=== PATIENT | female | born 1965 | race Asian ===

== ENCOUNTER 2020-04-12 15:54 | Inpatient (IN) | payer OTHER ==
[~2020-04-12] VITALS: Ht 157.5 cm; Wt 58.0 kg
[2020-04-12 16:46] LABS: HEMATOCRIT 16.7 % (37.0-47.0); MEAN CORPUSCULAR VOLUME 114 FL (80-99); PLATELET COUNT 39 K/UL (150-450); RED BLOOD COUNT 1.46 M/UL (4.20-5.40); RED CELL DISTRIBUTION WIDTH 16.9 % (11.6-14.8); WHITE BLOOD COUNT 2.8 K/UL (4.8-10.8)
[2020-04-12 16:50] VITALS: BP 100/53
[2020-04-12 16:50] LABS: HEMOGLOBIN 5.6 G/DL (12.0-16.0)
[2020-04-12] MEDS ORDERED: Pantoprazole Inj IV ONE (17:00)
--- NOTE | 2020-04-12 17:00 | NUR ---
ED Nurse Note: Pt BIBA for AMS. Pt is alert and orientedx3, weakness on general body. Pt responsive to name, Kyrgyz speaking, pt prefers to have son translate at bedside. Pt has yellow color to skin. Pt appears passive. Set up on monitor. Labs drawn and sent.
[2020-04-12 17:05] LABS: AMMONIA 84 umol/L (11-32); ANION GAP 12 mmol/L (5-15); BLOOD UREA NITROGEN 18 mg/dL (7-18); CALCIUM 9.3 MG/DL (8.5-10.1); CARBON DIOXIDE 19 MMOL/L (21-32); CHLORIDE 105 MMOL/L (98-107); CREATININE 1.5 MG/DL (0.55-1.30); POTASSIUM 4.8 MMOL/L (3.5-5.1); SODIUM 136 MMOL/L (136-145)
[2020-04-12 17:15] LABS: ALANINE AMINOTRANSFERASE 23 U/L (12-78); ALBUMIN 2.4 G/DL (3.4-5.0); ALBUMIN/GLOBULIN RATIO 0.8 (1.0-2.7); ALKALINE PHOSPHATASE 95 U/L (46-116); ASPARTATE AMINO TRANSFERASE 56 U/L (15-37); BILIRUBIN,TOTAL 9.4 MG/DL (0.2-1.0)
[2020-04-12 17:18] LABS: BILIRUBIN,DIRECT 3.1 MG/DL (0.0-0.3)
[2020-04-12 17:47] LABS: INR 1.6 (0.9-1.1)
--- NOTE | 2020-04-12 18:16 | Diagnostic Imaging Report ---
Indications: Altered mental status Technique: Spiral acquisitions obtained through the brain. Angled axial and coronal 5 x 5 mm slices were reconstructed. Total dose length product 965 mGycm. CTDI vol(s) 53 mGy. Dose reduction achieved using automated exposure control Comparison: None. Findings: There is age-related enlargement of the ventricles and extra axial CSF spaces. There is normal guzmán-white differentiation. No acute intracranial hemorrhage or edema. No mass effect nor midline shift. Visualized orbits and sinuses are unremarkable. The mastoids are clear. Impression: Age-related volume loss. Negative for acute intracranial bleed or mass effect. The CT scanner at [facility] is accredited by the [employer] and the scans are performed using protocols designed to limit radiation exposure to as low as reasonably achievable to attain images of sufficient resolution adequate for diagnostic evaluation.
--- NOTE | 2020-04-12 18:23 | Emergency Room Report ---
History of Present Illness General Chief Complaint: Altered Level of Consciousness Source: Family Member, Medical Record, EMS Present Illness HPI 54-year-old female presents the ED for evaluation. Brought in by EMS from home. Per EMS patient more altered than baseline x1 day. Son told EMS patient appeared confused. Patient has history of liver cirrhosis. Patient unable provide any additional history at this time. No signs of distress on arrival. No reported alcohol or drug use. No reported falls. No other aggravating relieving factors. No other associated symptoms Allergies: Coded Allergies: No Known Allergies (Unverified , 04/12/20) COVID-19 Screening Contact w/high risk pt: No Experienced COVID-19 symptoms?: No COVID-19 Testing performed DATA QUALITY CONSULTANT: No Patient History Past Medical History: other - cirrhosis Past Surgical History: none Pertinent Family History: none Social History: Denies: smoking, alcohol use, drug use Now: No Immunizations: UTD Reviewed Nursing Documentation: PMH: Agreed; PSxH: Agreed Review of Systems All Other Systems: limited Physical Exam Vital Signs Date Time Temp Pulse Resp B/P (MAP) Pulse Ox O2 Delivery O2 Flow Rate FiO2 04/12/20 15:59 97.9 84 18 102/56 (71) 99 Room Air Sp02 EP Interpretation: reviewed, normal General Appearance: no apparent distress, GCS 15, non-toxic, lethargic Head: normocephalic, atraumatic Eyes: bilateral eye scleral icterus ENT: hearing grossly normal, normal pharynx, no angioedema, normal voice Neck: full range of motion, supple/symm/no masses Respiratory: chest non-tender, lungs clear, normal breath sounds, speaking full sentences Cardiovascular #1: regular rate, rhythm, no edema Cardiovascular #2: 2+ carotid (R), 2+ carotid (L), 2+ radial (R), 2+ radial (L), 2+ dorsalis pedis (R), 2+ dorsalis pedis (L) Gastrointestinal: normal bowel sounds, non tender, soft, non-distended, no guarding, no rebound Rectal: deferred Genitourinary: normal inspection, no CVA tenderness Musculoskeletal: back normal, normal range of motion, gait/station normal, non- tender Neurologic: other - confused Psychiatric: other - confused Reflexes: 3+ bicep (R), 3+ bicep (L), 3+ tricep (R), 3+ tricep (L), 3+ knee (R), 3+ knee (L) Skin: jaundice, other Lymphatic: no adenopathy Procedures Critical Care Time Critical Care Time i. I feel this is a highly complex case requiring extensive working including EKG/Rhythm strip, Xray/CT/US, Blood/urine lab work, repeat exams while in ED, and administration of strong opiates/narcotics for pain control, admission to hospital or close patient follow up. Total time: 60 min bedside evaluation and treatment excludes procedures (EKG). Reason for critical care: hepatic encpahlopathy, anemia Possible complications: hypotension, hypertension, PA, shock, arrhythmias, metabolic acidosis, end organ damage, respiratory failure. Interventions: Labs, IV fluids, CT, discussion with family, blood transfusion, platelet transfusion, Protonix Course: Patient presenting with increased confusion. History of cirrhosis. Ammonia level high. Hemoglobin 5.6, platelets 39. ET head negative. Given IV fluids. Given Protonix IV. Blood transfusion ordered. Platelet ordered. Discussed with son at bedside. Consultations: nursing staff, EMS, family Performed by: Dr Mane Tolerated well condition = serious j. because of unstable vital signs this patient had a condition that could potentially threaten life or limb. I feel this is a critical patient who required my full attention while patient was considered critical. Total Critical Care Time excluding procedures was greater than 60 minutes Medical Decision Making Diagnostic Impression: Primary Impression: Altered level of consciousness Additional Impressions: Hepatic encephalopathy Anemia Qualified Codes: D64.9 - Anemia, unspecified Liver cirrhosis Qualified Codes: K74.60 - Unspecified cirrhosis of liver ER Course Hospital Course 54-year-old female presents with increased lethargy, confusion. History of cirrhosis Differential diagnoses include: sepsis, anemia, hepatic encephalopathy Clinical course Patient placed on stretcher. cafeteria monitor. After initial history and physical I ordered labs, IV fluids, CT He[place] Labs - leukopenia, Hb/Hct 5.6/16.7. Cr 1.5. LFTs/Bili elevated ammonia level elevated, platelets low CT Head no acute process Given IV fluids. Blood transfusion ordered. Platelets ordered. Protonix ordered. Discussed with son at bedside. Case discussed with Dr. Potter and he agreed to accept the patient to his service for further care and support I feel this is a highly complex case requiring extensive working including EKG/Rhythm strip, Xray/CT/US, Blood/urine lab work, repeat exams while in ED, and administration of strong opiates/narcotics for pain control, admission to hospital or close patient follow up. Diagnosis - ALOC, hepatic encephalopathy, anemia, liver cirrhosis Patient admitted to telemetry in serious condition Laboratory Tests Test 04/12/20 16:18 04/12/20 17:20 White Blood Count 2.8 K/UL (4.8-10.8) L Red Blood Count 1.46 M/UL (4.20-5.40) L Hemoglobin 5.6 G/DL (12.0-16.0) *L Hematocrit 16.7 % (37.0-47.0) L Mean Corpuscular Volume 114 FL (80-99) H Mean Corpuscular Hemoglobin 38.2 PG (27.0-31.0) H Mean Corpuscular Hemoglobin Concent 33.4 G/DL (32.0-36.0) Red Cell Distribution Width 16.9 % (11.6-14.8) H Platelet Count 39 K/UL (150-450) L Mean Platelet Volume 10.6 FL (6.5-10.1) H Neutrophils (%) (Auto) % (45.0-75.0) Lymphocytes (%) (Auto) % (20.0-45.0) Monocytes (%) (Auto) % (1.0-10.0) Eosinophils (%) (Auto) % (0.0-3.0) Basophils (%) (Auto) % (0.0-2.0) Differential Total Cells Counted 100 Neutrophils % (Manual) 68 % (45-75) Lymphocytes % (Manual) 22 % (20-45) Monocytes % (Manual) 10 % (1-10) Eosinophils % (Manual) 0 % (0-3) Basophils % (Manual) 0 % (0-2) Band Neutrophils 0 % (0-8) Platelet Estimate Decreased L Platelet Morphology Normal Polychromasia 1+ Anisocytosis 1+ Macrocytosis 2+ Sodium Level 136 MMOL/L (136-145) Potassium Level 4.8 MMOL/L (3.5-5.1) Chloride Level 105 MMOL/L (98-107) Carbon Dioxide Level 19 MMOL/L (21-32) L Anion Gap 12 mmol/L (5-15) Blood Urea Nitrogen 18 mg/dL (7-18) Creatinine 1.5 MG/DL (0.55-1.30) H Estimat Glomerular Filtration Rate 36.4 mL/min (>60) Glucose Level 121 MG/DL (74-106) H Calcium Level 9.3 MG/DL (8.5-10.1) Total Bilirubin 9.4 MG/DL (0.2-1.0) H Direct Bilirubin 3.1 MG/DL (0.0-0.3) H Aspartate Amino Transf (AST/SGOT) 56 U/L (15-37) H Alanine Aminotransferase (ALT/SGPT) 23 U/L (12-78) Alkaline Phosphatase 95 U/L (46-116) Ammonia 84 umol/L (11-32) H Total Protein 5.5 G/DL (6.4-8.2) L Albumin 2.4 G/DL (3.4-5.0) L Globulin 3.1 g/dL Albumin/Globulin Ratio 0.8 (1.0-2.7) L Salicylates Level < 0.2 ug/mL (2.8-20) L Acetaminophen Level < 2 MCG/ML (10-30) L Serum Alcohol < 3 mg/dL Prothrombin Time 17.5 SEC (9.30-11.50) H Prothromb Time International Ratio 1.6 (0.9-1.1) H Activated Partial Thromboplast Time 37 SEC (23-33) H CT/MRI/US Diagnostic Results CT/MRI/US Diagnostic Results : Imaging Test Ordered: CT Head Impression Procedure: CT Head no Contrast Indications: Altered mental status Technique: Spiral acquisitions obtained through the brain. Angled axial and coronal 5 x 5 mm slices were reconstructed. Total dose length product 965 mGycm. CTDI vol(s) 53 mGy. Dose reduction achieved using automated exposure control Comparison: None. Findings: There is age-related enlargement of the ventricles and extra axial CSF spaces. There is normal guzmán-white differentiation. No acute intracranial hemorrhage or edema. No mass effect nor midline shift. Visualized orbits and sinuses are unremarkable. The mastoids are clear. Impression: Age-related volume loss. Negative for acute intracranial bleed or mass effect. The CT scanner at [facility] is accredited by the [employer] and the scans are performed using protocols designed to limit radiation exposure to as low as reasonably achievable to attain images of sufficient resolution adequate for diagnostic evaluation. Last Vital Signs Date Time Temp Pulse Resp B/P (MAP) Pulse Ox O2 Delivery O2 Flow Rate FiO2 04/12/20 15:59 97.9 84 18 102/56 (71) 99 Room Air Status: improved Disposition: ADMITTED INPATIENT Condition: Serious Referrals: NON PHYSICIAN (PCP) Nguyễn Mane MD Apr 12, 2020 18:23
[2020-04-12 19:05] VITALS: BP 108/87
--- NOTE | 2020-04-12 19:10 | NUR ---
ED Nurse Note: Report received from JAELYN EDWARDS. 1st unit of PRBC started.
[2020-04-12] MEDS ORDERED: Lactulose 20gm/30ml UDC ORAL ONE (19:30)
--- NOTE | 2020-04-12 20:20 | NUR ---
ED Nurse Note: Pt's son REED at bedside
[2020-04-12 20:23] LABS: APPEARANCE,URINE CLEAR; BILIRUBIN, URINE NEGATIVE (NEGATIVE); GLUCOSE, URINE (UA) NEGATIVE (NEGATIVE); KETONES,URINE NEGATIVE (NEGATIVE); LEUKOCYTE ESTERASE ,URINE NEGATIVE (NEGATIVE); NITRITE,URINE NEGATIVE (NEGATIVE); PH,URINE 6 (4.5-8.0); PROTEIN,URINE NEGATIVE (NEGATIVE); UROBILINOGEN,URINE 1 MG/DL (0.0-1.0)
[2020-04-12 20:24] LABS: COLOR,URINE YELLOW
--- NOTE | 2020-04-12 20:25 | NUR ---
ED Nurse Note: Patient is AAOX4 as of the moment. Able to answer questions and converse properly
--- NOTE | 2020-04-12 20:43 | NUR ---
ED Nurse Note: Report given to KASH RN
--- NOTE | 2020-04-12 21:15 | NUR ---
TRANSFER TO FLOOR: Patient transferred to TELE at rm 206-2 via gurney, with potline monitor, accompanied by RN and dialysis technician. Belongings given and check by RN. Patient transported safely to bed and endorsed to RN.
[2020-04-12 21:24] VITALS: BP 136/69
--- NOTE | 2020-04-12 21:28 | NUR ---
NURSE NOTES: Received resident from Mike EDWARDS at ER.The resident is alert and oriented x2 and a [place] speaker.She is on room air with Resp even and unlabored.she just completed her first bag transfusion of PRBC well tolerated. The is no evidence of any transfusion reaction noted at this time.The skin is warm and soft and the abdomen is soft and non-distended, no evidence of skin breakdown noted at this time.The patient has a Right hand 18g that is patent and asymptomatic.The bed in low and locked level, bed alarm is on and the siderails is upx2 with call light within easy reach. Will call MD for admission order as indicated
--- NOTE | 2020-04-12 22:44 | NUR ---
NURSE NOTES: Spoke with patient and (Zane) at bedside, they are unable to obtain home medication list at this time. "It's at home and there's no one to pick it up or bring it." RN spoke with son (Gabriele) [phone] over the phone who stated that he is also unable to obtain home medication list at this time but that he will try to obtain it in the morning. (Zane) provided RN with patient's pharmacy - [facility] [phone] - no one answered, unable to leave message. Will ask morning nurse to follow up in the morning.
[2020-04-12] MEDS: Pantoprazole Inj IVP SCH (22:55)
--- NOTE | 2020-04-12 23:04 | NUR ---
NURSE NOTES: 1st Unit of PRBC finished, pt tolerated well.
[2020-04-12] MEDS ORDERED: Acetaminophen 500mg (ES) tab ORAL PRN (23:30)
--- NOTE | 2020-04-12 23:36 | NUR ---
NURSE NOTES: Received admission order from Dr Potter.All orders executed as indicated.The patient remained alert and stable and is receiving her second bag of PRBC with no evidence of a transfusion reaction noted at this time.
[2020-04-13] VITALS: BP 111/63
--- NOTE | 2020-04-13 03:00 | NUR ---
NURSE NOTES: The patient completed her second bag of PRBC and is alert and stable. The is no evidence of a transfusion reaction noted. The patient is also infusing 1 bag of Plateletpheresis and does not seem to be in any distress. will continue to monitor
--- NOTE | 2020-04-13 03:15 | NUR ---
NURSE NOTES: 2nd Unit of PRBC done, pt tolerated well.
[2020-04-13 04:00] VITALS: BP 98/59
--- NOTE | 2020-04-13 04:40 | NUR ---
NURSE NOTES: Pt finished 1 Unit of Platelets with no acute s/s of distress noted. Pt tolerated well
--- NOTE | 2020-04-13 06:37 | Consultation ---
History of Present Illness General Chief Complaint: Altered Level of Consciousness Present Illness Allergies: Coded Allergies: No Known Allergies (Unverified , 04/12/20) Patient History Healthcare decision maker N Resuscitation status Advanced Directive on File Physical Exam Last 24 Hour Vital Signs Date Time Temp Pulse Resp B/P (MAP) Pulse Ox O2 Delivery O2 Flow Rate FiO2 04/13/20 04:00 92 04/13/20 04:00 98.1 78 18 98/59 (72) 100 04/13/20 00:00 80 04/13/20 00:00 98.4 94 18 111/63 (79) 99 04/12/20 21:24 97.7 94 16 136/69 (91) 100 04/12/20 21:21 Room Air 04/12/20 21:15 98.1 89 18 112/92 99 Room Air 98 04/12/20 19:05 98.1 89 18 108/87 99 Room Air 04/12/20 16:50 97.9 82 17 100/53 98 Room Air 04/12/20 16:50 82 17 Room Air 98 04/12/20 15:59 97.9 84 18 102/56 (71) 99 Room Air Intake and Output 04/12/20 04/13/20 19:00 07:00 Intake Total 0 ml Output Total 800 ml Balance 0 ml -800 ml Intake Oral 0 ml Output Urine Total 800 ml Laboratory Tests Test 04/12/20 16:18 04/12/20 17:20 04/12/20 18:54 White Blood Count 2.8 K/UL (4.8-10.8) L Red Blood Count 1.46 M/UL (4.20-5.40) L Hemoglobin 5.6 G/DL (12.0-16.0) *L Hematocrit 16.7 % (37.0-47.0) L Mean Corpuscular Volume 114 FL (80-99) H Mean Corpuscular Hemoglobin 38.2 PG (27.0-31.0) H Mean Corpuscular Hemoglobin Concent 33.4 G/DL (32.0-36.0) Red Cell Distribution Width 16.9 % (11.6-14.8) H Platelet Count 39 K/UL (150-450) L Mean Platelet Volume 10.6 FL (6.5-10.1) H Neutrophils (%) (Auto) % (45.0-75.0) Lymphocytes (%) (Auto) % (20.0-45.0) Monocytes (%) (Auto) % (1.0-10.0) Eosinophils (%) (Auto) % (0.0-3.0) Basophils (%) (Auto) % (0.0-2.0) Differential Total Cells Counted 100 Neutrophils % (Manual) 68 % (45-75) Lymphocytes % (Manual) 22 % (20-45) Monocytes % (Manual) 10 % (1-10) Eosinophils % (Manual) 0 % (0-3) Basophils % (Manual) 0 % (0-2) Band Neutrophils 0 % (0-8) Platelet Estimate Decreased L Platelet Morphology Normal Polychromasia 1+ Anisocytosis 1+ Macrocytosis 2+ Sodium Level 136 MMOL/L (136-145) Potassium Level 4.8 MMOL/L (3.5-5.1) Chloride Level 105 MMOL/L (98-107) Carbon Dioxide Level 19 MMOL/L (21-32) L Anion Gap 12 mmol/L (5-15) Blood Urea Nitrogen 18 mg/dL (7-18) Creatinine 1.5 MG/DL (0.55-1.30) H Estimat Glomerular Filtration Rate 36.4 mL/min (>60) Glucose Level 121 MG/DL (74-106) H Calcium Level 9.3 MG/DL (8.5-10.1) Total Bilirubin 9.4 MG/DL (0.2-1.0) H Direct Bilirubin 3.1 MG/DL (0.0-0.3) H Aspartate Amino Transf (AST/SGOT) 56 U/L (15-37) H Alanine Aminotransferase (ALT/SGPT) 23 U/L (12-78) Alkaline Phosphatase 95 U/L (46-116) Ammonia 84 umol/L (11-32) H Total Protein 5.5 G/DL (6.4-8.2) L Albumin 2.4 G/DL (3.4-5.0) L Globulin 3.1 g/dL Albumin/Globulin Ratio 0.8 (1.0-2.7) L Salicylates Level < 0.2 ug/mL (2.8-20) L Acetaminophen Level < 2 MCG/ML (10-30) L Serum Alcohol < 3 mg/dL Prothrombin Time 17.5 SEC (9.30-11.50) H Prothromb Time International Ratio 1.6 (0.9-1.1) H Activated Partial Thromboplast Time 37 SEC (23-33) H Urine Color Yellow Urine Appearance Clear Urine pH 6 (4.5-8.0) Urine Specific [place] 1.010 (1.005-1.035) Urine Protein Negative (NEGATIVE) Urine Glucose (UA) Negative (NEGATIVE) Urine Ketones Negative (NEGATIVE) Urine Blood Negative (NEGATIVE) Urine Nitrite Negative (NEGATIVE) Urine Bilirubin Negative (NEGATIVE) Urine Urobilinogen 1 MG/DL (0.0-1.0) H Urine Leukocyte Esterase Negative (NEGATIVE) Urine Opiates Screen Negative (NEGATIVE) Urine Barbiturates Screen Negative (NEGATIVE) Phencyclidine (PCP) Screen Negative (NEGATIVE) Urine Amphetamines Screen Negative (NEGATIVE) Urine Benzodiazepines Screen Negative (NEGATIVE) Urine Cocaine Screen Negative (NEGATIVE) Urine Marijuana (THC) Screen Negative (NEGATIVE) Height (Feet): 5 Height (Inches): 2.00 Weight (Pounds): 130 Medications Current Medications Medications (Trade) Dose Ordered Sig/Tommy Route PRN Reason Start Time Stop Time Status Last Admin Dose Admin Acetaminophen (Tylenol) 500 mg Q6H PRN ORAL Mild Pain (Pain Scale 1-3) 04/12/20 23:30 05/12/20 23:29 Pantoprazole (Protonix) 40 mg EVERY 12 HOURS IVP 04/12/20 22:45 05/12/20 22:44 04/12/20 22:55 Assessment/Plan Assessment/Plan: Hematology Consultation REQ MD: Lee Ha RFC: Pancytopenia DOS: 04/13/20 HPI 54-year-old female presents the ED for evaluation. Brought in by EMS from home. Per EMS patient more altered than baseline x1 day. Son told EMS patient appeared confused. Patient has history of liver cirrhosis. Patient unable provide any additional history at this time. No signs of distress on arrival. No reported alcohol or drug use. No reported falls. No other aggravating relieving factors. No other associated symptoms. 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 Coded Allergies: No Known Allergies (Unverified , 04/12/20) COVID-19 Screening Contact w/high risk pt: No Experienced COVID-19 symptoms?: No COVID-19 Testing performed PE MANAGER: No Patient History Past Medical History: other - cirrhosis Past Surgical History: none Pertinent Family History: none Social History: Denies: smoking, alcohol use, drug use Now: No Immunizations: UTD Reviewed Nursing Documentation: PMH: Agreed; PSxH: Agreed Review of Systems All Other Systems: limited Physical Exam Sp02 EP Interpretation: reviewed, normal General Appearance: no apparent distress Heent: hearing grossly normal, normal pharynx, no angioedema, normal voice Neck: full range of motion, supple/symm/no masses Respiratory: chest non-tender, lungs clear, normal breath sounds, speaking full sentences Cardiovascular: regular rate, rhythm, no edema GI: normal bowel sounds, non tender, soft, non-distended, no guarding, no rebound Rectal: deferred Neurologic: confused Psychiatric: other - confused Lymphatic: no adenopathy Labs: reviewed Imaging: noted Assessment and Recs # Pancytopenia is due to underlying liver cirrhosis - first time, she has been here do not have baseline --> smear ordered --> hep and hiv as wel --> us abd --> lactulose/rifax per gi --> wbc 2.8 --> hgb 5.6 --> plt 39k --> transfuse on prn basis --> 2 units prbc 04/13 # Coaguloapthy with hepatic encpahlopathy --> lactulose/rifax per gi --> vitk as needed to reverse if bleeding # Increased confusion due to cirrhosis --> per neuro # History of cirrhosis. --> gi aware # Gerd --> ppi # Joseph --> per renal # Dvt ppx scds Assessment and Recs discussed with Lam Maldonado MD Apr 13, 2020 06:37
--- NOTE | 2020-04-13 07:15 | NUR ---
NURSE HAND-OFF REPORT: Important Events on Shift: 2 Units of PRBC given, 1 Unit of Platelet given. Pt tolerated well Patient Status: Stable Diet: NPO except ice chips and meds Pending Orders: US abd Pending Results/Labs: CBC Pending notification: n/a Latest Vital Signs: Temperature 98.1 , Pulse 92 , B/P 98 /59 , Respiratory Rate 18 , O2 SAT 100 , Room Air, O2 Flow Rate . Vital Sign Comment: WNL EKG Rhythm: Sinus Rhythm Rhythm change?: N MD Notified?: - MD Response: Latest Anderson Fall Score: 35 Fall Risk: Medium Risk Safety Measures: Call light Within Reach, Bed Alarm Zone 2, Side Rails Side Rails x2, Bed position Low and Locked. Fall Precautions: Yes Yellow Socks Yellow Gown Door Sign Patient Fall Education Report given to JERRY Srinivasan.
[2020-04-13 07:18] LABS: HEMATOCRIT 22.1 % (37.0-47.0); MEAN CORPUSCULAR VOLUME 94 FL (80-99); PLATELET COUNT 58 K/UL (150-450); RED BLOOD COUNT 2.34 M/UL (4.20-5.40); RED CELL DISTRIBUTION WIDTH 18.7 % (11.6-14.8); WHITE BLOOD COUNT 3.9 K/UL (4.8-10.8)
[2020-04-13 07:21] LABS: HEMOGLOBIN 8.2 G/DL (12.0-16.0)
--- NOTE | 2020-04-13 07:45 | NUR ---
NURSE NOTES: pt in bed awake watching TV, just used toilet. Pt on cardiac cath lab technologist no signs of cardiac or respiratory respiratory distress. Bed locked and in lowest position, call light within reach. will continue to monitor pt
[2020-04-13 07:49] LABS: % IRON SATURATION 95 % (15-50); IRON 208 ug/dL (50-175); TOTAL IRON BINDING CAPACITY 220 ug/dL (250-450)
[2020-04-13 07:51] LABS: ALBUMIN 2.4 G/DL (3.4-5.0); ALBUMIN/GLOBULIN RATIO 0.7 (1.0-2.7); BILIRUBIN,TOTAL 10.9 MG/DL (0.2-1.0); CALCIUM 9.2 MG/DL (8.5-10.1); CREATININE 1.4 MG/DL (0.55-1.30); POTASSIUM 4.5 MMOL/L (3.5-5.1)
[2020-04-13 07:55] LABS: BILIRUBIN,DIRECT 3.5 MG/DL (0.0-0.3)
[2020-04-13 08:00] VITALS: BP 102/49
[2020-04-13 08:05] LABS: FERRITIN 404 NG/ML (8-388)
--- NOTE | 2020-04-13 08:19 | General Progress Note ---
Subjective Allergies: Coded Allergies: No Known Allergies (Unverified , 04/12/20) Objective Last 24 Hour Vital Signs Date Time Temp Pulse Resp B/P (MAP) Pulse Ox O2 Delivery O2 Flow Rate FiO2 04/13/20 04:00 92 04/13/20 04:00 98.1 78 18 98/59 (72) 100 04/13/20 00:00 80 04/13/20 00:00 98.4 94 18 111/63 (79) 99 04/12/20 21:24 97.7 94 16 136/69 (91) 100 04/12/20 21:21 Room Air 04/12/20 21:15 98.1 89 18 112/92 99 Room Air 98 04/12/20 19:05 98.1 89 18 108/87 99 Room Air 04/12/20 16:50 97.9 82 17 100/53 98 Room Air 04/12/20 16:50 82 17 Room Air 98 04/12/20 15:59 97.9 84 18 102/56 (71) 99 Room Air Intake and Output 04/12/20 04/13/20 19:00 07:00 Intake Total 0 ml Output Total 800 ml Balance 0 ml -800 ml Intake Oral 0 ml Output Urine Total 800 ml Laboratory Tests 04/12/20 16:18: White Blood Count 2.8L, Red Blood Count 1.46L, Hemoglobin 5.6*L, Hematocrit 16.7L, Mean Corpuscular Volume 114H, Mean Corpuscular Hemoglobin 38.2H, Mean Corpuscular Hemoglobin Concent 33.4, Red Cell Distribution Width 16.9H, Platelet Count 39L, Mean Platelet Volume 10.6H, Neutrophils (%) (Auto) , Lymphocytes (%) (Auto) , Monocytes (%) (Auto) , Eosinophils (%) (Auto) , Basophils (%) (Auto) , Differential Total Cells Counted 100, Neutrophils % (Manual) 68, Lymphocytes % (Manual) 22, Monocytes % (Manual) 10, Eosinophils % (Manual) 0, Basophils % (Manual) 0, Band Neutrophils 0, Platelet Estimate DecreasedL, Platelet Morphology Normal, Polychromasia 1+, Anisocytosis 1+, Macrocytosis 2+, Sodium Level 136, Potassium Level 4.8, Chloride Level 105, Carbon Dioxide Level 19L, Anion Gap 12, Blood Urea Nitrogen 18, Creatinine 1.5H, Estimat Glomerular Filtration Rate 36.4, Glucose Level 121H, Calcium Level 9.3, Total Bilirubin 9.4H, Direct Bilirubin 3.1H, Aspartate Amino Transf (AST/SGOT) 56H, Alanine Aminotransferase (ALT/SGPT) 23, Alkaline Phosphatase 95, Ammonia 84H, Total Protein 5.5L, Albumin 2.4L, Globulin 3.1, Albumin/Globulin Ratio 0.8L, Salicylates Level < 0.2L, Acetaminophen Level < 2L, Serum Alcohol < 3 04/12/20 17:20: Prothrombin Time 17.5H, Prothromb Time International Ratio 1.6H, Activated Partial Thromboplast Time 37H 04/12/20 18:54: Urine Color Yellow, Urine Appearance Clear, Urine pH 6, Urine Specific [place] 1.010, Urine Protein Negative, Urine Glucose (UA) Negative, Urine Ketones Negative, Urine Blood Negative, Urine Nitrite Negative, Urine Bilirubin Negative, Urine Urobilinogen 1H, Urine Leukocyte Esterase Negative, Urine Opiates Screen Negative, Urine Barbiturates Screen Negative, Phencyclidine (PCP) Screen Negative, Urine Amphetamines Screen Negative, Urine Benzodiazepines Screen Negative, Urine Cocaine Screen Negative, Urine Marijuana (THC) Screen Negative 04/13/20 06:53: White Blood Count 3.9L, Red Blood Count 2.34L, Hemoglobin 8.2#L, Hematocrit 22.1#L, Mean Corpuscular Volume 94#, Mean Corpuscular Hemoglobin 34.8H, Mean Corpuscular Hemoglobin Concent 36.9H, Red Cell Distribution Width 18.7H, Platelet Count 58L, Mean Platelet Volume 6.2L, Neutrophils (%) (Auto) , Lymphocytes (%) (Auto) , Monocytes (%) (Auto) , Eosinophils (%) (Auto) , Basophils (%) (Auto) , Neutrophils % (Manual) [Pending], Lymphocytes % (Manual) [Pending], Platelet Estimate [Pending], Platelet Morphology [Pending], Sodium Level 138, Potassium Level 4.5, Chloride Level 107, Carbon Dioxide Level 19L, Anion Gap 12, Blood Urea Nitrogen 18, Creatinine 1.4H, Estimat Glomerular Filtration Rate 39.5, Glucose Level 97, Calcium Level 9.2, Total Bilirubin 10.9H , Direct Bilirubin 3.5H, Aspartate Amino Transf (AST/SGOT) 40H, Alanine Aminotransferase (ALT/SGPT) 24, Alkaline Phosphatase 76, Total Protein 5.8L, Albumin 2.4L, Globulin 3.4, Albumin/Globulin Ratio 0.7L, Iron Level 208H, Total Iron Binding Capacity 220L, Percent Iron Saturation 95H, Unsaturated Iron Binding 12L, Ferritin 404H, HIV (1&2) Antibody Rapid [Pending] Height (Feet): 5 Height (Inches): 2.00 Weight (Pounds): 130 Assessment/Plan Assessment/Plan: GI CONSULT Assessment - EtOH +/- viral hepatitis cirrhosis - last EtOH 2 mo ago - severe anemia, w/o current melena - coagulopathy - severe anemia - mild azotemia Recommendations NPO IVF PPI serial CBC lactulose check hepatitis panel check AFP imaging EGD Thank you Hans Eason MD Apr 13, 2020 08:19
[2020-04-13] MEDS ORDERED: Phytonadione 10 mg/mL 1ml amp SUBQ ONE (08:30)
[2020-04-13] MEDS: Pantoprazole Inj IVP SCH ×2 (09:06→21:28)
[2020-04-13] MEDS: Lactulose 20gm/30ml UDC ORAL SCH ×3 (09:06→18:19)
[2020-04-13] MEDS: Thiamine 100mg tab ORAL SCH (09:06)
[2020-04-13 12:00] VITALS: BP 104/53
--- NOTE | 2020-04-13 13:00 | Consultation ---
DATE OF CONSULTATION: 04/13/2020 INFECTIOUS DISEASES CONSULTATION CONSULTING PHYSICIAN: Julio Cesar Clifton MD PRIMARY ATTENDING PHYSICIAN: Lee Potter MD REASON FOR CONSULTATION: Pancytopenia. HISTORY OF PRESENT ILLNESS: The patient is a 54-year-old female admitted yesterday because of altered mental status. 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 The patient's condition became worse recently, became more yellowish. PAST MEDICAL HISTORY: Cirrhosis. ALLERGIES: No known drug allergies. MEDICATIONS: Multivitamin, lactulose, thiamine, Protonix. SOCIAL HISTORY: Denies alcohol, drug abuse, smoking. . Have 1 son. FAMILY HISTORY: Mother had lung cancer. REVIEW OF SYSTEMS: No fever. No chills. Has nausea, vomiting. No abdominal pain. No diarrhea. No dysuria. PHYSICAL EXAMINATION: VITAL SIGNS: Temperature 99.1, pulse 89, blood pressure 94/49. GENERAL APPEARANCE: Seems to have normal weight, in no distress. HEAD AND NECK: Icteric sclerae. HEART: Normal rate. LUNGS: Clear. ABDOMEN: Soft. Mildly distended. EXTREMITIES: No edema. NEUROLOGIC: Awake, alert, responsive. LABORATORY AND DIAGNOSTIC DATA: WBC 3.9, hemoglobin 8.2, hemoglobin at the time of admission was 5.6, the patient had two units of blood, hematocrit 22.1, platelets 58. Total bilirubin 10.9, direct bilirubin 3.5, AST 40, albumin 2.4. Sodium 138, potassium 4.5, chloride 107, bicarb 19, BUN 18, creatinine 1.4. UA was negative except urobilinogen. HIV test negative. Hepatitis profile is pending. CT scan of the head was normal except for age related volume loss. IMPRESSION: 1. Pancytopenia. 2. Cirrhosis of the liver likely GI bleeding. 3. Severe anemia. 4. Altered mental status. 5. Metabolic encephalopathy. RECOMMENDATION: Because the patient is in high risk of getting infection, start ceftriaxone until workup will be done. We will follow up the hepatitis serologies. At the end of my exam, I thank Dr. Potter, for involving me in the care of this patient. Julio Cesar Clifton M.D. DR: Rashida JOB#: [id number] CC:
[2020-04-13] MEDS: cefTRIAXone 1 GM in D5W 55 ML IVPB SCH (13:17)
--- NOTE | 2020-04-13 13:33 | Diagnostic Imaging Report ---
Indication: Abdominal pain Technique: Campos-scale and duplex images of the upper abdomen were obtained Comparison: none Findings: There are bilateral pleural effusions. There is trace ascites. Gallbladder demonstrates gallstones and tumefactive sludge. The gallbladder wall is thickened, measures up to 5 mm thick. Sonographic Reyes's sign is negative. Common bile duct measures 6 mm in diameter. No intrahepatic biliary ductal dilatation. The liver demonstrates normal echogenicity. However, it demonstrates surface nodularity. Portal vein and hepatic veins are patent, but flow reversal in the main, right, and left portal veins is noted. Intrahepatic collateral vessels are noted.. Pancreas is unremarkable. The spleen is enlarged. It measures up to 15 cm long axis dimension. Left kidney measures 9.6 cm in length. Right kidney measures 9.3 cm length. Both kidneys demonstrate normal echogenicity. There is no hydronephrosis. No focal abnormality . Non-aneurysmal abdominal aorta . Impression: Evidence of hepatic cirrhosis, with hepatic surface nodularity Evidence of portal hypertension, with reversed flow within the portal venous system, intrahepatic collateral vessels, splenomegaly, and trace ascites Cholelithiasis. Gallbladder wall thickening is likely on the basis of the hemodynamic derangements resulting from the hepatocellular disease, but could also indicate acute cholecystitis. If there is high clinical suspicion, consider hepatobiliary nuclear scan Negative for dilated bile ducts Small bilateral pleural effusions
--- NOTE | 2020-04-13 13:45 | Consultation ---
DATE OF CONSULTATION: 04/13/2020 GASTROENTEROLOGY CONSULTATION CHIEF COMPLAINT: I was asked to see this patient for evaluation of anemia and cirrhosis. HISTORY OF PRESENT ILLNESS: The patient is a 54-year-old Yoruba woman who is here for the first time in this hospital. She came in due to syncopal episode and severe anemia. The patient speaks Yoruba and was interviewed with Yoruba-speaking nurse. She says that she has been drinking a bottle of Yoruba vodka a day for the past 10 years and about 5 years ago, in 2014, she was told she had abnormal liver tests. Her last alcohol use was about two months ago. She is unaware of any hepatitis B or C history. She has had an endoscopy once in 2014 and again, second time in December of this year. She said there was some inflammation in the stomach, but no further details were available. She denies any melena or hematochezia. In fact, she has been constipated before she came to the hospital. She has never had a colonoscopy. She cannot remember medications and her laboratory parameters show severe anemia, thrombocytopenia, and some coagulopathy, all of which were consistent with cirrhosis. In addition, she has a higher level of bilirubin. PAST MEDICAL HISTORY: History of cirrhosis. FAMILY HISTORY: Noncontributory. SOCIAL HISTORY: The patient drinks a bottle of Yoruba hard liquor daily for the last 10 years, although she states she has not had any for two months. REVIEW OF SYSTEMS: Otherwise negative. PHYSICAL EXAMINATION: GENERAL: Jaundiced woman seen in her room. HEENT: Normocephalic and atraumatic. Sclerae icteric. NECK: Supple. CHEST: Clear to auscultation. CARDIOVASCULAR: Revealed regular rate. ABDOMEN: Soft with good bowel sounds. There was no obvious tenderness. EXTREMITIES: Reveal trace edema. LABORATORY DATA: Noted. ASSESSMENT: This patient presents with cirrhosis manifesting of acute jaundice with coagulopathy, with lower platelets and elevated INR. The etiology for her cirrhosis is at least partially due to alcohol use, although chronic hepatitis B and C will have to be ruled out. She does have severe anemia, but she responded to initial blood transfusion. There appears to be no active bleeding and the patient has not had a bowel movement since she has been here and she is also constipated. Her anemia is very therefore be more of a chronic multifactorial process. An endoscopy could be done to rule out esophageal varices and to consider treatment. Imaging studies have been ordered starting with ultrasound to look at the liver for any mass lesions and alpha-fetoprotein has been ordered as well. I would check hepatitis B and C serologies for comorbid diseases. The patient has a guarded prognosis given the severity of liver disease. If she does not recover from her acute jaundice and liver failure, then she may need to be evaluated in the liver transplant center. RECOMMENDATIONS: 1. Lactulose twice a day given the elevated ammonia. 2. Proton pump inhibitor. 3. Imaging studies. 4. Hepatitis serologies. 5. Endoscopy this week. 6. Serial CBC. 7. Multivitamins and thiamin. Thank you for asking me to participate in care of this patient. Hans Guthrie M.D. DR: Gwen JOB#: [id number] CC:
--- NOTE | 2020-04-13 15:41 | NUR ---
CASE MANAGEMENT:REVIEW 54 YR OLD FEMALE BIBA FROM HOME CC: AMS SI: ANEMIA. HEPATIC ENCEPHALOPATHY LIVER CIRRHOSIS 97.8 84 18 100/53 99% ON RA WBC-2.8 RBC-1.46 H/H-5.6/16.7 CR+1.5 IS: 1L NS BOLUS IV PROTONIX LACTULOSE PO TYPE & CROSS TRANSFUSE PRBC'S PLATELETPHERESIS CT HEAD : TO TELEMETRY
[2020-04-13 16:00] VITALS: BP 100/48
--- NOTE | 2020-04-13 16:45 | NUR ---
NURSE NOTES: pt family stated pt quite drinking 2-3 months ago.
--- NOTE | 2020-04-13 19:16 | NUR ---
NURSE HAND-OFF REPORT: Important Events on Shift:pt, stool was collected no noticeable traces of blood Patient Status: full code Diet: NPO Pending Orders: morning labs Pending Results/Labs: Pending MD notification: Latest Vital Signs: Temperature 98.1 , Pulse 93 , B/P 100 /48 , Respiratory Rate 20 , O2 SAT 97 , Room Air, O2 Flow Rate . Vital Sign Comment: EKG Rhythm: Sinus Rhythm Rhythm change?: N MD Notified?: - MD Response: Latest Anderson Fall Score: 35 Fall Risk: Medium Risk Safety Measures: Call light Within Reach, Bed Alarm Zone 2, Side Rails Side Rails x2, Bed position Low and Locked. Fall Precautions: Y Yellow Socks y Yellow Gown y Patient Fall Education y Report given to Nova/RN.
--- NOTE | 2020-04-13 19:30 | NUR ---
NURSE NOTES: Received pt and report from JERRY Srinivasan. Observed pt resting in bed with both eyes open and family member at bedside. site monitor is in placed; pt is NSR. IV site intact, intact, asymptomatic, and patent. Bed is in the lowest position and locked. Call light and bedside table is within reach. No signs/symptoms of acute distress noted. Will continue plan of care.
[2020-04-13 20:14] VITALS: BP 104/49
--- NOTE | 2020-04-13 22:00 | History and Physical Report ---
DATE OF ADMISSION: 04/12/2020 HISTORY OF PRESENT ILLNESS: Patient admitted for GI bleed, hepatic encephalopathy. Patient is Kazakh speaking, brought in for altered mental status, hepatic encephalopathy. Has history of liver cirrhosis. Admitted for GI bleed. Cannot get any history from her. Patient speaks Kazakh only and is confused. PAST MEDICAL HISTORY: Significant for cirrhosis of the liver, anemia. Patient also has history of anemia. Patient also has history of GERD. PAST SURGICAL HISTORY: None. ALLERGIES: No known allergies. MEDICATIONS: None. FAMILY HISTORY: Noncontributory. SOCIAL HISTORY: Patient history of smoking. Unable to get history of alcohol at this point. We will need to confirm with the family member. No known drug abuse. REVIEW OF SYSTEMS: HEENT: Denies headaches. RESPIRATORY: Denies shortness of breath. Denies cough. CARDIOVASCULAR: Denies chest pain. Denies nausea, vomiting, or diarrhea. EXTREMITIES: Denies pain. CENTRAL NERVOUS SYSTEM: Denies change in speech pattern however patient is a very poor historian, mostly Kazakh speaking and is very confused despite a Kazakh instant potato processor. PHYSICAL EXAMINATION: VITAL SIGNS: Temperature 98.1, pulse is 78, blood pressure 98/59. HEENT: Patient is jaundiced. PERRLA. CHEST: Clear to auscultation. CARDIOVASCULAR: Regular rate and rhythm. No murmurs or extra sounds. GASTROINTESTINAL: Distended. Positive bowel sounds. Abdomen is soft. No organomegaly. Patient does not have positive fluid wave. Does not have symptoms of ascites. EXTREMITIES: No edema. NEUROLOGIC: Has generalized weakness. Oriented to name only. She is jaundiced. LABORATORY DATA: WBC of 2.8, hemoglobin of 5.3, platelets of 39. Sodium 137, potassium 4.8, BUN of 18, creatinine 1.5. Total bilirubin 9.4, AST of 56, ALT of 23, alkaline phosphatase of 95. ASSESSMENT AND PLAN: Pancytopenia, cirrhosis, jaundice, hepatic encephalopathy, anemia, elevated LFTs, rule out alcohol abuse. I have consulted Dr. Herndon, Dr. Lam Reese, Dr. Guthrie, and Dr. Julio Cesar Clifton to help with the management of the above-mentioned abnormalities and symptoms. Patient has pancytopenia and Dr. Reese has also been consulted for transfusion. We need to rule out why patient has GI bleed and endoscopy by Dr. Guthrie. Lee Potter M.D. DR: TONY JOB#: [id number] CC:
[2020-04-14] VITALS: BP 106/43
--- NOTE | 2020-04-14 01:54 | NUR ---
NURSE NOTES: Observed pt asleep in bed with both eyes closed. No signs/symptoms of acute distress noted. Will continue plan of care.
[2020-04-14 04:00] VITALS: BP 102/52
[2020-04-14 06:41] LABS: HEMATOCRIT 21.3 % (37.0-47.0); HEMOGLOBIN 7.7 G/DL (12.0-16.0); MEAN CORPUSCULAR VOLUME 95 FL (80-99); PLATELET COUNT 45 K/UL (150-450); RED BLOOD COUNT 2.24 M/UL (4.20-5.40); RED CELL DISTRIBUTION WIDTH 19.8 % (11.6-14.8); WHITE BLOOD COUNT 3.4 K/UL (4.8-10.8)
[2020-04-14 06:51] LABS: INR 1.7 (0.9-1.1)
[2020-04-14 07:01] LABS: CALCIUM 9.2 MG/DL (8.5-10.1); CREATININE 1.4 MG/DL (0.55-1.30); POTASSIUM 4.5 MMOL/L (3.5-5.1)
--- NOTE | 2020-04-14 07:21 | NUR ---
NURSE HAND-OFF REPORT: Important Events on Shift: No significant events during tube sorter. Patient Status: Stable Diet: NPO Pending Orders: EGD? Pending Results/Labs: AM Labs Pending MD notification: N Latest Vital Signs: Temperature 97.7 , Pulse 78 , B/P 102 /52 , Respiratory Rate 17 , O2 SAT 98 , Room Air, O2 Flow Rate . EKG Rhythm: Sinus Rhythm Rhythm change?: N Latest Anderson Fall Score: 35 Fall Risk: Medium Risk Safety Measures: Call light Within Reach, Bed Alarm Zone 2, Side Rails Side Rails x2, Bed position Low and Locked. Fall Precautions: Yellow Socks Yellow Gown Patient Fall Education Report given to JERRY Sweet.
--- NOTE | 2020-04-14 07:25 | NUR ---
NURSE NOTES: Received report from Nova/RN. Observed patient awake, lying semi-cortez's, resting comfortably. On room air, no acute distress/SOB noted, breathing evenly and unlabored. AAO x4, able to make needs known, denies pain at this time. IV site patent and intact, saline locked. Call light within reach, Encouraged to use call light when needed. Will continue plan of care.
[2020-04-14 08:00] VITALS: BP 102/49
[2020-04-14] MEDS ORDERED: Phytonadione 10 mg/mL 1ml amp SUBQ SCH (08:05)
--- NOTE | 2020-04-14 08:16 | NUR ---
CASE MANAGEMENT:REVIEW 04/14/20 SI: ANEMIA. HEPATIC ENCEPHALOPATHY CIRRHOSIS. PANCYTOPENIA. BILATERAL PLEURAL EFFUSIONS 99.7 85 17 106/43 96% ON RA WBC-3.4 RBC-2.24 H/H-7.7/21.3 PLT-45 CR+1.4 CEA+9.5 INR+1.7 IS: VIT K SQ X1 IV ROCEPHIN Q24 MVI PO QD THIAMINE PO QD LACTULOSE PO TID IV PROTONIX Q12 : TELEMETRY STATUS DCP: FROM HOME PLAN: CT ABD EGD NPO
[2020-04-14] MEDS: Lactulose 20gm/30ml UDC ORAL SCH ×3 (08:58→18:05)
[2020-04-14] MEDS: Pantoprazole Inj IVP SCH ×2 (08:58→21:51)
[2020-04-14] MEDS: Thiamine 100mg tab ORAL SCH (08:58)
--- NOTE | 2020-04-14 10:26 | Infectious Diseases Prog Note ---
Assessment/Plan Assessment/Plan IMPRESSION: 1. Pancytopenia. 2. Cirrhosis of the liver likely GI bleeding. 3. Severe anemia. 4. Altered mental status. 5. Metabolic encephalopathy. 6. Portal hypertension 7. Cholelithiasis RECOMMENDATION: Continue ceftriaxone Will f/u CT scan of abdomen & pelvis Subjective ROS Limited/Unobtainable: Yes Constitutional: Reports: no symptoms Gastrointestinal/Abdominal: Reports: no symptoms Allergies: Coded Allergies: No Known Allergies (Unverified , 04/12/20) Objective Last 24 Hour Vital Signs Date Time Temp Pulse Resp B/P (MAP) Pulse Ox O2 Delivery O2 Flow Rate FiO2 04/14/20 08:00 97.5 82 20 102/49 (66) 100 04/14/20 04:00 97.7 78 17 102/52 (69) 98 04/14/20 04:00 78 04/14/20 00:00 85 04/14/20 00:00 99.7 85 17 106/43 (64) 96 04/13/20 21:00 Room Air 04/13/20 20:14 99.7 90 20 104/49 (67) 97 04/13/20 20:00 100 04/13/20 16:00 86 04/13/20 16:00 98.1 93 20 100/48 (65) 97 04/13/20 12:00 99.5 88 18 104/53 (70) 98 04/13/20 12:00 94 Height (Feet): 5 Height (Inches): 2.00 Weight (Pounds): 130 General Appearance: no acute distress HEENT: mucous membranes moist, other - icterus sclera Respiratory/Chest: lungs clear Cardiovascular: normal rate Abdomen: soft, non tender Extremities: no edema Neurologic/Psychiatric: alert, responsive Laboratory Tests Test 04/13/20 19:50 04/14/20 05:43 Stool Occult Blood Pending White Blood Count 3.4 K/UL (4.8-10.8) L Red Blood Count 2.24 M/UL (4.20-5.40) L Hemoglobin 7.7 G/DL (12.0-16.0) L Hematocrit 21.3 % (37.0-47.0) L Mean Corpuscular Volume 95 FL (80-99) Mean Corpuscular Hemoglobin 34.4 PG (27.0-31.0) H Mean Corpuscular Hemoglobin Concent 36.3 G/DL (32.0-36.0) H Red Cell Distribution Width 19.8 % (11.6-14.8) H Platelet Count 45 K/UL (150-450) L Mean Platelet Volume 9.0 FL (6.5-10.1) Neutrophils (%) (Auto) % (45.0-75.0) Lymphocytes (%) (Auto) % (20.0-45.0) Monocytes (%) (Auto) % (1.0-10.0) Eosinophils (%) (Auto) % (0.0-3.0) Basophils (%) (Auto) % (0.0-2.0) Differential Total Cells Counted 100 Neutrophils % (Manual) 64 % (45-75) Lymphocytes % (Manual) 29 % (20-45) Monocytes % (Manual) 6 % (1-10) Eosinophils % (Manual) 1 % (0-3) Basophils % (Manual) 0 % (0-2) Band Neutrophils 0 % (0-8) Platelet Estimate Decreased L Platelet Morphology Normal Anisocytosis 2+ Prothrombin Time 17.7 SEC (9.30-11.50) H Prothromb Time International Ratio 1.7 (0.9-1.1) H Sodium Level 137 MMOL/L (136-145) Potassium Level 4.5 MMOL/L (3.5-5.1) Chloride Level 107 MMOL/L (98-107) Carbon Dioxide Level 19 MMOL/L (21-32) L Anion Gap 11 mmol/L (5-15) Blood Urea Nitrogen 15 mg/dL (7-18) Creatinine 1.4 MG/DL (0.55-1.30) H Estimat Glomerular Filtration Rate 39.5 mL/min (>60) Glucose Level 89 MG/DL (74-106) Calcium Level 9.2 MG/DL (8.5-10.1) Current Medications Medications (Trade) Dose Ordered Sig/Tommy Route PRN Reason Start Time Stop Time Status Last Admin Dose Admin Barium Sulfate (Readi-Cat 2) 450 ml NOW PRN ORAL Radiology Procedure 04/14/20 08:00 04/16/20 07:59 Ceftriaxone Sodium 1 gm/ Dextrose 55 ml @ 110 mls/hr Q24H IVPB 04/13/20 12:00 04/20/20 11:59 04/13/20 13:17 Lactulose (Cephulac) 20 gm THREE TIMES A DAY ORAL 04/13/20 09:00 05/13/20 08:59 04/14/20 08:58 Multivitamins (Multivitamins) 1 tab DAILY ORAL 04/13/20 09:00 05/13/20 08:59 04/14/20 08:58 Pantoprazole (Protonix) 40 mg EVERY 12 HOURS IVP 04/12/20 22:45 05/12/20 22:44 04/14/20 08:58 Thiamine HCl (Vitamin B1) 100 mg DAILY ORAL 04/13/20 09:00 05/13/20 08:59 04/14/20 08:58 Julio Cesar Clifton MD Apr 14, 2020 10:26
--- NOTE | 2020-04-14 11:19 | Hematology/Onc Progress Note ---
Assessment/Plan Assessment/Plan Assessment and Recs # Pancytopenia is due to underlying liver cirrhosis - first time, she has been here do not have baseline, severe portal htn and cirrhosis noted --> smear ordered --> hep and hiv as wel --> us abd reviewed and shows cirrhosis and splenomegaly, portal htn --> lactulose/rifax per gi --> wbc 2.8--3.4 --> hgb 5.6-->7.7 --> plt 39k-->45 --> transfuse on prn basis --> 2 units prbc 04/13 --> vit k as needed # Coaguloapthy with hepatic encpahlopathy --> lactulose/rifax per gi --> vitk as needed to reverse if bleeding # Increased confusion due to cirrhosis --> per neuro # History of cirrhosis. --> gi aware # Gerd --> ppi # Joseph --> per renal # Dvt ppx scds Assessment and Recs discussed with Rn Subjective Constitutional: Denies: no symptoms, chills, fever, malaise, weakness, other HEENT: Denies: no symptoms, eye pain, blurred vision, tearing, double vision, ear pain, ear discharge, nose pain, nose congestion, throat pain, throat swelling, mouth pain, mouth swelling, other Cardiovascular: Denies: no symptoms, chest pain, edema, irregular heart rate, lightheadedness, palpitations, syncope, other Respiratory: Denies: no symptoms, cough, shortness of breath, SOB with excertion, SOB at rest, sputum, wheezing, other Gastrointestinal/Abdominal: Denies: no symptoms, abdomen distended, abdominal pain, black stools, tarry stools, blood in stool, constipated, diarrhea, difficulty swallowing, nausea, poor appetite, poor fluid intake, rectal bleeding, vomiting, other Genitourinary: Denies: no symptoms, burning, discharge, frequency, flank pain, hematuria, incontinence, pain, urgency, other Neurologic/Psychiatric: Denies: no symptoms, anxiety, depressed, emotional problems, headache, numbness, paresthesia, pre-existing deficit, seizure, tingling, tremors, weakness, other Endocrine: Denies: no symptoms, excessive sweating, flushing, intolerance to cold, intolerance to heat, increased hunger, increased thirst, increased urine, unexplained weight gain, unexplained weight loss, other Hematologic/Lymphatic: Denies: no symptoms, anemia, easy bleeding, easy bruising, adenopathy, other Allergies: Coded Allergies: No Known Allergies (Unverified , 04/12/20) Subjective 04/14 labs reviewed, no bleeding, is awake alert, us abd noted, seen by id Objective Objective Current Medications Medications (Trade) Dose Ordered Sig/Tommy Route PRN Reason Start Time Stop Time Status Last Admin Dose Admin Barium Sulfate (Readi-Cat 2) 450 ml NOW PRN ORAL Radiology Procedure 04/14/20 08:00 04/16/20 07:59 Ceftriaxone Sodium 1 gm/ Dextrose 55 ml @ 110 mls/hr Q24H IVPB 04/13/20 12:00 04/20/20 11:59 04/13/20 13:17 Lactulose (Cephulac) 20 gm THREE TIMES A DAY ORAL 04/13/20 09:00 05/13/20 08:59 04/14/20 08:58 Multivitamins (Multivitamins) 1 tab DAILY ORAL 04/13/20 09:00 05/13/20 08:59 04/14/20 08:58 Pantoprazole (Protonix) 40 mg EVERY 12 HOURS IVP 04/12/20 22:45 05/12/20 22:44 04/14/20 08:58 Thiamine HCl (Vitamin B1) 100 mg DAILY ORAL 04/13/20 09:00 05/13/20 08:59 04/14/20 08:58 Last 24 Hour Vital Signs Date Time Temp Pulse Resp B/P (MAP) Pulse Ox O2 Delivery O2 Flow Rate FiO2 04/14/20 09:00 Room Air 04/14/20 08:00 97.5 82 20 102/49 (66) 100 04/14/20 08:00 78 04/14/20 04:00 97.7 78 17 102/52 (69) 98 04/14/20 04:00 78 04/14/20 00:00 85 04/14/20 00:00 99.7 85 17 106/43 (64) 96 04/13/20 21:00 Room Air 04/13/20 20:14 99.7 90 20 104/49 (67) 97 04/13/20 20:00 100 04/13/20 16:00 86 04/13/20 16:00 98.1 93 20 100/48 (65) 97 04/13/20 12:00 99.5 88 18 104/53 (70) 98 04/13/20 12:00 94 04/13/20 09:00 Room Air 04/13/20 08:00 99.1 89 18 102/49 (66) 97 04/13/20 08:00 91 04/13/20 04:00 92 04/13/20 04:00 98.1 78 18 98/59 (72) 100 04/13/20 00:00 80 04/13/20 00:00 98.4 94 18 111/63 (79) 99 04/12/20 21:24 97.7 94 16 136/69 (91) 100 04/12/20 21:21 Room Air 04/12/20 21:15 98.1 89 18 112/92 99 Room Air 98 04/12/20 19:05 98.1 89 18 108/87 99 Room Air 04/12/20 16:50 97.9 82 17 100/53 98 Room Air 04/12/20 16:50 82 17 Room Air 98 04/12/20 15:59 97.9 84 18 102/56 (71) 99 Room Air Intake and Output 04/13/20 04/14/20 19:00 07:00 # Voids 2 2 Labs Test 04/12/20 16:18 04/12/20 17:20 04/12/20 18:54 04/13/20 06:53 White Blood Count 2.8 K/UL (4.8-10.8) 3.9 K/UL (4.8-10.8) Red Blood Count 1.46 M/UL (4.20-5.40) 2.34 M/UL (4.20-5.40) Hemoglobin 5.6 G/DL (12.0-16.0) 8.2 G/DL (12.0-16.0) Hematocrit 16.7 % (37.0-47.0) 22.1 % (37.0-47.0) Mean Corpuscular Volume 114 FL (80-99) 94 FL (80-99) Mean Corpuscular Hemoglobin 38.2 PG (27.0-31.0) 34.8 PG (27.0-31.0) Mean Corpuscular Hemoglobin Concent 33.4 G/DL (32.0-36.0) 36.9 G/DL (32.0-36.0) Red Cell Distribution Width 16.9 % (11.6-14.8) 18.7 % (11.6-14.8) Platelet Count 39 K/UL (150-450) 58 K/UL (150-450) Mean Platelet Volume 10.6 FL (6.5-10.1) 6.2 FL (6.5-10.1) Neutrophils (%) (Auto) % (45.0-75.0) % (45.0-75.0) Lymphocytes (%) (Auto) % (20.0-45.0) % (20.0-45.0) Monocytes (%) (Auto) % (1.0-10.0) % (1.0-10.0) Eosinophils (%) (Auto) % (0.0-3.0) % (0.0-3.0) Basophils (%) (Auto) % (0.0-2.0) % (0.0-2.0) Differential Total Cells Counted 100 100 Neutrophils % (Manual) 68 % (45-75) 74 % (45-75) Lymphocytes % (Manual) 22 % (20-45) 15 % (20-45) Monocytes % (Manual) 10 % (1-10) 10 % (1-10) Eosinophils % (Manual) 0 % (0-3) 1 % (0-3) Basophils % (Manual) 0 % (0-2) 0 % (0-2) Band Neutrophils 0 % (0-8) 0 % (0-8) Platelet Estimate Decreased Decreased Platelet Morphology Normal Normal Polychromasia 1+ Anisocytosis 1+ 2+ Macrocytosis 2+ Sodium Level 136 MMOL/L (136-145) 138 MMOL/L (136-145) Potassium Level 4.8 MMOL/L (3.5-5.1) 4.5 MMOL/L (3.5-5.1) Chloride Level 105 MMOL/L (98-107) 107 MMOL/L (98-107) Carbon Dioxide Level 19 MMOL/L (21-32) 19 MMOL/L (21-32) Anion Gap 12 mmol/L (5-15) 12 mmol/L (5-15) Blood Urea Nitrogen 18 mg/dL (7-18) 18 mg/dL (7-18) Creatinine 1.5 MG/DL (0.55-1.30) 1.4 MG/DL (0.55-1.30) Estimat Glomerular Filtration Rate 36.4 mL/min (>60) 39.5 mL/min (>60) Glucose Level 121 MG/DL (74-106) 97 MG/DL (74-106) Calcium Level 9.3 MG/DL (8.5-10.1) 9.2 MG/DL (8.5-10.1) Total Bilirubin 9.4 MG/DL (0.2-1.0) 10.9 MG/DL (0.2-1.0) Direct Bilirubin 3.1 MG/DL (0.0-0.3) 3.5 MG/DL (0.0-0.3) Aspartate Amino Transf (AST/SGOT) 56 U/L (15-37) 40 U/L (15-37) Alanine Aminotransferase (ALT/SGPT) 23 U/L (12-78) 24 U/L (12-78) Alkaline Phosphatase 95 U/L (46-116) 76 U/L (46-116) Ammonia 84 umol/L (11-32) Total Protein 5.5 G/DL (6.4-8.2) 5.8 G/DL (6.4-8.2) Albumin 2.4 G/DL (3.4-5.0) 2.4 G/DL (3.4-5.0) Globulin 3.1 g/dL 3.4 g/dL Albumin/Globulin Ratio 0.8 (1.0-2.7) 0.7 (1.0-2.7) Salicylates Level < 0.2 ug/mL (2.8-20) Acetaminophen Level < 2 MCG/ML (10-30) Serum Alcohol < 3 mg/dL Prothrombin Time 17.5 SEC (9.30-11.50) Prothromb Time International Ratio 1.6 (0.9-1.1) Activated Partial Thromboplast Time 37 SEC (23-33) Urine Color Yellow Urine Appearance Clear Urine pH 6 (4.5-8.0) Urine Specific [place] 1.010 (1.005-1.035) Urine Protein Negative (NEGATIVE) Urine Glucose (UA) Negative (NEGATIVE) Urine Ketones Negative (NEGATIVE) Urine Blood Negative (NEGATIVE) Urine Nitrite Negative (NEGATIVE) Urine Bilirubin Negative (NEGATIVE) Urine Urobilinogen 1 MG/DL (0.0-1.0) Urine Leukocyte Esterase Negative (NEGATIVE) Urine Opiates Screen Negative (NEGATIVE) Urine Barbiturates Screen Negative (NEGATIVE) Phencyclidine (PCP) Screen Negative (NEGATIVE) Urine Amphetamines Screen Negative (NEGATIVE) Urine Benzodiazepines Screen Negative (NEGATIVE) Urine Cocaine Screen Negative (NEGATIVE) Urine Marijuana (THC) Screen Negative (NEGATIVE) Iron Level 208 ug/dL (50-175) Total Iron Binding Capacity 220 ug/dL (250-450) Percent Iron Saturation 95 % (15-50) Unsaturated Iron Binding 12 ug/dL (112-346) Ferritin 404 NG/ML (8-388) Alpha Fetoprotein 10.2 ng/mL (0.0-8.3) HIV (1&2) Antibody Rapid Negative (NEGATIVE) Test 04/13/20 07:30 04/13/20 19:50 04/14/20 05:43 Carcinoembryonic Antigen 9.5 ng/mL (0.0-4.7) Hepatitis A IgM Antibody Negative (Negative) Hepatitis B Surface Antigen Negative (Negative) Hepatitis B Core IgM Antibody Negative (Negative) Hepatitis C Antibody <0.1 s/co ratio White Blood Count 3.4 K/UL (4.8-10.8) Red Blood Count 2.24 M/UL (4.20-5.40) Hemoglobin 7.7 G/DL (12.0-16.0) Hematocrit 21.3 % (37.0-47.0) Mean Corpuscular Volume 95 FL (80-99) Mean Corpuscular Hemoglobin 34.4 PG (27.0-31.0) Mean Corpuscular Hemoglobin Concent 36.3 G/DL (32.0-36.0) Red Cell Distribution Width 19.8 % (11.6-14.8) Platelet Count 45 K/UL (150-450) Mean Platelet Volume 9.0 FL (6.5-10.1) Neutrophils (%) (Auto) % (45.0-75.0) Lymphocytes (%) (Auto) % (20.0-45.0) Monocytes (%) (Auto) % (1.0-10.0) Eosinophils (%) (Auto) % (0.0-3.0) Basophils (%) (Auto) % (0.0-2.0) Differential Total Cells Counted 100 Neutrophils % (Manual) 64 % (45-75) Lymphocytes % (Manual) 29 % (20-45) Monocytes % (Manual) 6 % (1-10) Eosinophils % (Manual) 1 % (0-3) Basophils % (Manual) 0 % (0-2) Band Neutrophils 0 % (0-8) Platelet Estimate Decreased Platelet Morphology Normal Anisocytosis 2+ Prothrombin Time 17.7 SEC (9.30-11.50) Prothromb Time International Ratio 1.7 (0.9-1.1) Sodium Level 137 MMOL/L (136-145) Potassium Level 4.5 MMOL/L (3.5-5.1) Chloride Level 107 MMOL/L (98-107) Carbon Dioxide Level 19 MMOL/L (21-32) Anion Gap 11 mmol/L (5-15) Blood Urea Nitrogen 15 mg/dL (7-18) Creatinine 1.4 MG/DL (0.55-1.30) Estimat Glomerular Filtration Rate 39.5 mL/min (>60) Glucose Level 89 MG/DL (74-106) Calcium Level 9.2 MG/DL (8.5-10.1) Height (Feet): 5 Height (Inches): 2.00 Weight (Pounds): 130 Objective Sp02 EP Interpretation: reviewed, normal General Appearance: no apparent distress Heent: hearing grossly normal, normal pharynx, no angioedema, normal voice Neck: full range of motion, supple/symm/no masses Respiratory: chest non-tender, lungs clear, normal breath sounds, speaking full sentences Cardiovascular: regular rate, rhythm, no edema GI: normal bowel sounds, non tender, soft, non-distended, no guarding, no rebound Rectal: deferred Neurologic: confused Psychiatric: other - confused Lymphatic: no adenopathy Lam Reese MD Apr 14, 2020 11:18
[2020-04-14 12:00] VITALS: BP 97/50
[2020-04-14] MEDS: cefTRIAXone 1 GM in D5W 55 ML IVPB SCH (12:22)
--- NOTE | 2020-04-14 14:07 | Diagnostic Imaging Report ---
Indication: Indication: Abdominal pain Technique: Spiral acquisitions obtained through the abdomen and pelvis. Patient given oral contrast. No IV contrast utilized, per referring physician request.. Multiplanar reconstructions were generated. Total dose length product 189 mGycm. CTDIvol(s) 3, 2 mGy. Dose reduction achieved using automated exposure control Comparison: No comparison CT scan. Reference made to abdominal sonogram 04/13/2020 Findings: The appendix is normal. There is moderate retained colonic stool diffusely. No evidence of diverticulosis or diverticulitis. Ingested contrast has traversed nearly the entirety of small bowel, reaches the distal ileum. No small bowel wall thickening. There is trace free intraperitoneal fluid. No free or loculated intraperitoneal gas is evident. Distal esophagus, stomach, duodenum are unremarkable. The gallbladder is distended. It contains multiple gallstones. There is mild thickening of the gallbladder wall. No biliary ductal dilatation. Lack of IV contrast limits assessment of the solid organs. The liver demonstrates mild surface nodularity and is somewhat atrophic. No focal abnormality. The spleen is enlarged. The pancreas demonstrates a small calcification in the uncinate process. No retroperitoneal or mesenteric mass or adenopathy. No pelvic mass or adenopathy. Normal uterus and adnexal structures. There are small bilateral pleural effusions. There is a small pericardial effusion. The lung bases demonstrate mild interstitial edema. The bones are unremarkable. There is diffuse mild edema of the subcutaneous fat and of the mesenteric and retroperitoneal fat. Impression: Cholelithiasis. Distended mildly thick-walled gallbladder. Wall thickening is most likely secondary to drainage hemodynamic related to hepatocellular disease, but the possibility of acute cholecystitis should also be considered. Consider hepatobiliary nuclear scan if there is high clinical suspicion No acute process otherwise Evidence of hepatic cirrhosis. Evidence of anasarca, with trace free intraperitoneal fluid, bilateral pleural effusions, small pericardial effusion, diffuse edema of the subcutaneous, abdominal and pelvic fat, mild pulmonary interstitial edema. Splenomegaly The CT scanner at [facility] is accredited by the [employer] and the scans are performed using protocols designed to limit radiation exposure to as low as reasonably achievable to attain images of sufficient resolution adequate for diagnostic evaluation. Technique: Spiral acquisitions obtained through the abdomen and pelvis. No oral contrast utilized, per emergency room physician request No IV contrast utilized, per referring physician request.. Multiplanar reconstructions were generated. Total dose length product 189 mGycm. CTDIvol(s) 3, 2 mGy. Dose reduction achieved using automated exposure control Comparison: Findings: Impression: The CT scanner at [facility] is accredited by the [employer] and the scans are performed using protocols designed to limit radiation exposure to as low as reasonably achievable to attain images of sufficient resolution adequate for diagnostic evaluation.
[2020-04-14 14:41] LABS: HEMATOCRIT 21.9 % (37.0-47.0); HEMOGLOBIN 7.9 G/DL (12.0-16.0); MEAN CORPUSCULAR VOLUME 95 FL (80-99); PLATELET COUNT 49 K/UL (150-450); RED BLOOD COUNT 2.31 M/UL (4.20-5.40); WHITE BLOOD COUNT 3.7 K/UL (4.8-10.8)
--- NOTE | 2020-04-14 14:54 | NUR ---
INSURANCE CLINICALS AND REVIEW FAXED TO [employer] T: [phone] [id number] F:[phone]
--- NOTE | 2020-04-14 15:00 | NUR ---
NURSE NOTES: One unit of blood transfusion order received and carried out.
[2020-04-14 16:00] VITALS: BP 98/49
--- NOTE | 2020-04-14 17:35 | NUR ---
NURSE NOTES: Blood transfusion started, Patient tolerated well. Will continue to monitor.
--- NOTE | 2020-04-14 19:25 | NUR ---
NURSE HAND-OFF REPORT: Important Events on Shift:Receiving Blood transfusion Patient Status: Stable Diet: Clear liquid diet Pending Orders: NA Pending Results/Labs:Morning labs Pending MD notification:NA Latest Vital Signs: Temperature 97.5 , Pulse 90 , B/P 98 /49 , Respiratory Rate 20 , O2 SAT 100 , Room Air, O2 Flow Rate . Vital Sign Comment: Stable EKG Rhythm: Sinus Rhythm Rhythm change?: N MD Notified?: - MD Response: Latest Anderson Fall Score: 35 Fall Risk: Medium Risk Safety Measures: Call light Within Reach, Bed Alarm Zone 2, Side Rails Side Rails x2, Bed position Low and Locked. Fall Precautions: Yellow Socks Yellow Gown Patient Fall Education Report given to Nova/RN.
--- NOTE | 2020-04-14 19:30 | NUR ---
NURSE NOTES: Received pt and report from JERRY Sweet. Observed pt resting in bed with both eyes open and watching television. Pt is A/Ox4. brazer crawler torch is in placed; pt is NSR. IV site intact, intact, asymptomatic, and patent; currently running 1 unit Packed RBCs @ 70cc/hr. No adverse reaction noted. Bed is in the lowest position and locked. Call light and bedside table is within reach. No signs/symptoms of acute distress noted. Will continue plan of care.
[2020-04-14 20:00] VITALS: BP 99/51
--- NOTE | 2020-04-14 20:32 | General Progress Note ---
Subjective ROS Limited/Unobtainable: Yes Allergies: Coded Allergies: No Known Allergies (Unverified , 04/12/20) Objective Last 24 Hour Vital Signs Date Time Temp Pulse Resp B/P (MAP) Pulse Ox O2 Delivery O2 Flow Rate FiO2 04/14/20 16:00 97.5 82 20 98/49 (65) 100 04/14/20 16:00 90 04/14/20 12:00 83 04/14/20 12:00 97.9 83 20 97/50 (66) 100 04/14/20 09:00 Room Air 04/14/20 08:00 97.5 82 20 102/49 (66) 100 04/14/20 08:00 78 04/14/20 04:00 97.7 78 17 102/52 (69) 98 04/14/20 04:00 78 04/14/20 00:00 85 04/14/20 00:00 99.7 85 17 106/43 (64) 96 04/13/20 21:00 Room Air Intake and Output 04/13/20 04/14/20 19:00 07:00 # Voids 2 2 Laboratory Tests 04/14/20 05:43: White Blood Count 3.4L, Red Blood Count 2.24L, Hemoglobin 7.7L, Hematocrit 21.3L , Mean Corpuscular Volume 95, Mean Corpuscular Hemoglobin 34.4H, Mean Corpuscular Hemoglobin Concent 36.3H, Red Cell Distribution Width 19.8H, Platelet Count 45L, Mean Platelet Volume 9.0, Neutrophils (%) (Auto) , Lymphocytes (%) (Auto) , Monocytes (%) (Auto) , Eosinophils (%) (Auto) , Basophils (%) (Auto) , Differential Total Cells Counted 100, Neutrophils % (Manual) 64, Lymphocytes % (Manual) 29, Monocytes % (Manual) 6, Eosinophils % (Manual) 1, Basophils % (Manual) 0, Band Neutrophils 0, Platelet Estimate DecreasedL, Platelet Morphology Normal, Anisocytosis 2+, Prothrombin Time 17.7H, Prothromb Time International Ratio 1.7H, Sodium Level 137, Potassium Level 4.5, Chloride Level 107, Carbon Dioxide Level 19L, Anion Gap 11, Blood Urea Nitrogen 15, Creatinine 1.4H, Estimat Glomerular Filtration Rate 39.5, Glucose Level 89, Calcium Level 9.2 04/14/20 14:20: White Blood Count 3.7L, Red Blood Count 2.31L, Hemoglobin 7.9L, Hematocrit 21.9L , Mean Corpuscular Volume 95, Mean Corpuscular Hemoglobin 34.4H, Mean Corpuscular Hemoglobin Concent 36.3H, Red Cell Distribution Width 19.0H, Platelet Count 49L, Mean Platelet Volume 6.0L, Neutrophils (%) (Auto) , Lymphocytes (%) (Auto) , Monocytes (%) (Auto) , Eosinophils (%) (Auto) , Basophils (%) (Auto) , Differential Total Cells Counted 100, Neutrophils % (Manual) 66, Lymphocytes % (Manual) 26, Monocytes % (Manual) 5, Eosinophils % (Manual) 2, Basophils % (Manual) 0, Band Neutrophils 1, Platelet Estimate DecreasedL, Platelet Morphology Normal, Anisocytosis 2+, Reactive Lymphocytes Occasional, Smudge Cells Occasional, Hypochromasia 2+ Height (Feet): 5 Height (Inches): 2.00 Weight (Pounds): 130 General Appearance: confused Respiratory/Chest: lungs clear, normal breath sounds Assessment/Plan Problem List: (1) Hepatic encephalopathy ICD Codes: K72.90 - Hepatic failure, unspecified without coma SNOMED: 99687405 (2) Liver cirrhosis ICD Codes: K74.60 - Unspecified cirrhosis of liver SNOMED: 73324572 Qualifiers: Qualified Codes: K74.60 - Unspecified cirrhosis of liver (3) Altered level of consciousness ICD Codes: R40.4 - Transient alteration of awareness SNOMED: 7013997 (4) Anemia ICD Codes: D64.9 - Anemia, unspecified SNOMED: 619398218 Qualifiers: Qualified Codes: D64.9 - Anemia, unspecified (5) GI bleed ICD Codes: K92.2 - Gastrointestinal hemorrhage, unspecified SNOMED: 53201388 Status: progressing Assessment/Plan: jaundice hepatic encephalopathy cirrhosis r/o etoh abuse revewed chart an\d labs Lee Potter MD Apr 14, 2020 20:32
--- NOTE | 2020-04-14 21:37 | NUR ---
NURSE NOTES: Completed 1 unit of Packed RBCs at 2130. No adverse reaction noted. Post VS: temp 98.1 F, HR 83 bpm, BP 98/51. Will continue to monitor pt.
--- NOTE | 2020-04-14 21:51 | General Progress Note ---
Subjective Allergies: Coded Allergies: No Known Allergies (Unverified , 04/12/20) Subjective above noted feels OK hungry CT noted --> cirrhosis CEA elevated, AFP mildly elevated OB (-) --> no acute GIB Objective Last 24 Hour Vital Signs Date Time Temp Pulse Resp B/P (MAP) Pulse Ox O2 Delivery O2 Flow Rate FiO2 04/14/20 20:00 99.0 89 19 99/51 (67) 98 04/14/20 20:00 83 04/14/20 16:00 97.5 82 20 98/49 (65) 100 04/14/20 16:00 90 04/14/20 12:00 83 04/14/20 12:00 97.9 83 20 97/50 (66) 100 04/14/20 09:00 Room Air 04/14/20 08:00 97.5 82 20 102/49 (66) 100 04/14/20 08:00 78 04/14/20 04:00 97.7 78 17 102/52 (69) 98 04/14/20 04:00 78 04/14/20 00:00 85 04/14/20 00:00 99.7 85 17 106/43 (64) 96 Intake and Output 04/13/20 04/14/20 19:00 07:00 # Voids 2 2 Laboratory Tests 04/14/20 05:43: White Blood Count 3.4L, Red Blood Count 2.24L, Hemoglobin 7.7L, Hematocrit 21.3L , Mean Corpuscular Volume 95, Mean Corpuscular Hemoglobin 34.4H, Mean Corpuscular Hemoglobin Concent 36.3H, Red Cell Distribution Width 19.8H, Platelet Count 45L, Mean Platelet Volume 9.0, Neutrophils (%) (Auto) , Lymphocytes (%) (Auto) , Monocytes (%) (Auto) , Eosinophils (%) (Auto) , Basophils (%) (Auto) , Differential Total Cells Counted 100, Neutrophils % (Manual) 64, Lymphocytes % (Manual) 29, Monocytes % (Manual) 6, Eosinophils % (Manual) 1, Basophils % (Manual) 0, Band Neutrophils 0, Platelet Estimate DecreasedL, Platelet Morphology Normal, Anisocytosis 2+, Prothrombin Time 17.7H, Prothromb Time International Ratio 1.7H, Sodium Level 137, Potassium Level 4.5, Chloride Level 107, Carbon Dioxide Level 19L, Anion Gap 11, Blood Urea Nitrogen 15, Creatinine 1.4H, Estimat Glomerular Filtration Rate 39.5, Glucose Level 89, Calcium Level 9.2 04/14/20 14:20: White Blood Count 3.7L, Red Blood Count 2.31L, Hemoglobin 7.9L, Hematocrit 21.9L , Mean Corpuscular Volume 95, Mean Corpuscular Hemoglobin 34.4H, Mean Corpuscular Hemoglobin Concent 36.3H, Red Cell Distribution Width 19.0H, Platelet Count 49L, Mean Platelet Volume 6.0L, Neutrophils (%) (Auto) , Lymphocytes (%) (Auto) , Monocytes (%) (Auto) , Eosinophils (%) (Auto) , Basophils (%) (Auto) , Differential Total Cells Counted 100, Neutrophils % (Manual) 66, Lymphocytes % (Manual) 26, Monocytes % (Manual) 5, Eosinophils % (Manual) 2, Basophils % (Manual) 0, Band Neutrophils 1, Platelet Estimate DecreasedL, Platelet Morphology Normal, Anisocytosis 2+, Reactive Lymphocytes Occasional, Smudge Cells Occasional, Hypochromasia 2+ Height (Feet): 5 Height (Inches): 2.00 Weight (Pounds): 130 Objective Jaundiced NCAT supple CTA RR abd soft ND trace edema Assessment/Plan Status: progressing Assessment/Plan: Assessment - EtOH +/- viral hepatitis cirrhosis - last EtOH 2 mo ago - severe anemia, but currently OB (-) - coagulopathy - severe anemia - mild azotemia Recommendations clears IVF PPI serial CBC lactulose check hepatitis panel --> negative A, B, C check AFP - mildly elevated imaging EGD in am - needs preop platelets Hans Guthrie MD Apr 14, 2020 21:51
[2020-04-15] VITALS: BP 103/49
[2020-04-15 04:00] VITALS: BP 98/53
[2020-04-15 07:02] LABS: INR 1.6 (0.9-1.1)
--- NOTE | 2020-04-15 07:07 | NUR ---
NURSE NOTES: Received report from Nova/RN. Observed patient awake, lying semi-cortez's, resting comfortably. On room air, no acute distress/SOB noted, breathing evenly and unlabored. AAO x4, able to make needs known, denies pain at this time. NPO at this time. IV site patent and intact, saline locked. Call light within reach, Encouraged to use call light when needed. Will continue plan of care.
[2020-04-15 07:15] LABS: HEMATOCRIT 24.5 % (37.0-47.0); HEMOGLOBIN 9.1 G/DL (12.0-16.0); MEAN CORPUSCULAR VOLUME 93 FL (80-99); PLATELET COUNT 24 K/UL (150-450); RED BLOOD COUNT 2.64 M/UL (4.20-5.40); RED CELL DISTRIBUTION WIDTH 18.6 % (11.6-14.8); WHITE BLOOD COUNT 3.3 K/UL (4.8-10.8)
--- NOTE | 2020-04-15 07:30 | NUR ---
NURSE NOTES: Blood bank called and said platelet won't be ready for another 2-[address] Guthrie[address]
--- NOTE | 2020-04-15 07:36 | NUR ---
NURSE HAND-OFF REPORT: Important Events on Shift: Completed 1 unit of PRBCs. Rapid COVID swabbed STATE resulted negative. Patient Status: Stable Diet: NPO Pending Orders: EGD, platelet transfusion Pending Results/Labs: AM Labs Pending MD notification: N Latest Vital Signs: Temperature 97.7 , Pulse 75 , B/P 98 /53 , Respiratory Rate 17 , O2 SAT 96 , Room Air, O2 Flow Rate . EKG Rhythm: Sinus Rhythm Rhythm change?: N Latest Anderson Fall Score: 35 Fall Risk: Medium Risk Safety Measures: Call light Within Reach, Bed Alarm Zone 2, Side Rails Side Rails x2, Bed position Low and Locked. Fall Precautions: Yellow Socks Yellow Gown Patient Fall Education Report given to JERRY Sweet.
[2020-04-15 07:42] LABS: ALBUMIN 2.4 G/DL (3.4-5.0); ALBUMIN/GLOBULIN RATIO 0.8 (1.0-2.7); BILIRUBIN,TOTAL 11.5 MG/DL (0.2-1.0); CALCIUM 8.9 MG/DL (8.5-10.1); CREATININE 1.3 MG/DL (0.55-1.30); POTASSIUM 4.1 MMOL/L (3.5-5.1)
[2020-04-15 07:46] LABS: BILIRUBIN,DIRECT 3.5 MG/DL (0.0-0.3)
[2020-04-15 08:00] VITALS: BP 94/50
[2020-04-15] MEDS: Thiamine 100mg tab ORAL SCH (08:11)
[2020-04-15] MEDS: Lactulose 20gm/30ml UDC ORAL SCH (08:11)
[2020-04-15] MEDS: Pantoprazole Inj IVP SCH (08:12)
--- NOTE | 2020-04-15 09:48 | NUR ---
CASE MANAGEMENT:REVIEW 04/15/20 SI: ANEMIA. HEPATIC ENCEPHALOPATHY CIRRHOSIS. PANCYTOPENIA. BILATERAL PLEURAL EFFUSIONS 97.7 70 16 94/50 98% ON RA INR+1.6 WBC-3.3 RBC-2.64 H/H-9.1/24.5 PLT-24 IS: IV ROCEPHIN Q24 MVI PO QD THIAMINE PO QD LACTULOSE PO TID IV PROTONIX Q12 : TELEMETRY STATUS DCP: FROM HOME PLAN: EGD SCHEDULED FOR TODAY NPO
--- NOTE | 2020-04-15 11:40 | NUR ---
NURSE NOTES: Patient supposed to have EGD today (04/15/20) at 1000 am after receiving Platelet at 0800 am. Doctor Cleveland put Platelet order last night 04/14 @ 21:57 to be transfused @ 0800 am. RN (Micki) called Blood bank around 0715 am and left message. Received a call back from Blood bank and asked me if the platelet is going to be transfused for sure because platelet cost $1000. I told them yes patient needs it before EGD. Blood bank told me it wont be ready for another 2-[address] Guthrie to let him know that there is a delay. Dr. Guthrie came to the floor around 10:00am to get the Consent and print out of the order to take it downstairs and get the platelet himself. He brought the platelet and gave me (Micki) to transfuse it. Unfortunately the patient was getting ready to leave AMA. RN told the patient and the transfusion takes only an hour or an hour and half, and she can Do EGD after. Patient stated there is so much delay; I have been here for three days without food, and I cant wait anymore. I have to go home and rest. RN explained the risk of leaving at this time. Patient still refused to stay, Signed out AMA form. ekg monitor and IV removed, Belonging check done and signed by . Patient Left with .
--- NOTE | 2020-04-15 22:09 | General Progress Note ---
Subjective Allergies: Coded Allergies: No Known Allergies (Unverified , 04/12/20) Subjective Patient seen this am no new symptoms d/w GI lab and blood bank re EGD timing platelets checked out of blood bank by to help expedite transfusion shortly before procedure time patient signed out AMA Per RN, patient's RN and could not convince her to stay so pt d/c'd AMA I received a call from patient son later that afternoon wants to bring back pt to a hospital but also wanted patient to be evaluated by liver specialists I advised [place] [facility] [place], He is deciding on taking mother to [facility] Objective Last 24 Hour Vital Signs Date Time Temp Pulse Resp B/P (MAP) Pulse Ox O2 Delivery O2 Flow Rate FiO2 04/15/20 09:00 Room Air 04/15/20 08:00 97.7 70 16 94/50 (65) 98 04/15/20 08:00 70 04/15/20 04:00 97.7 75 17 98/53 (68) 96 04/15/20 04:00 86 04/15/20 00:00 80 04/15/20 00:00 98.1 86 17 103/49 (67) 97 Intake and Output 04/14/20 04/15/20 19:00 07:00 Intake Total 250 ml Balance 250 ml Blood Product 250 ml # Voids 4 2 Laboratory Tests 04/15/20 06:00: White Blood Count 3.3L, Red Blood Count 2.64L, Hemoglobin 9.1L, Hematocrit 24.5L , Mean Corpuscular Volume 93, Mean Corpuscular Hemoglobin 34.6H, Mean Corpuscular Hemoglobin Concent 36.3H, Red Cell Distribution Width 18.6H, Platelet Count 24#L, Mean Platelet Volume 10.1, Neutrophils (%) (Auto) , Lymphocytes (%) (Auto) , Monocytes (%) (Auto) , Eosinophils (%) (Auto) , Basophils (%) (Auto) , Differential Total Cells Counted 100, Neutrophils % (Manu al) 50, Lymphocytes % (Manual) 34, Monocytes % (Manual) 13H, Eosinophils % (Manual) 2, Basophils % (Manual) 1, Band Neutrophils 0, Platelet Estimate DecreasedL, Platelet Morphology Normal, Anisocytosis 1+, Prothrombin Time 16.8H, Prothromb Time International Ratio 1.6H, Sodium Level 135L, Potassium Level 4.1, Chloride Level 103, Carbon Dioxide Level 20L, Anion Gap 12, Blood Urea Nitrogen 15, Creatinine 1.3, Estimat Glomerular Filtration Rate 43.0, Glucose Level 111H, Calcium Level 8.9, Total Bilirubin 11.5H, Direct Bilirubin 3.5H, Aspartate Amino Transf (AST/SGOT) 41H, Alanine Aminotransferase (ALT/SGPT) 18, Alkaline Phosphatase 68, Total Protein 5.3L, Albumin 2.4L, Globulin 2.9, Albumin/Globulin Ratio 0.8L Height (Feet): 5 Height (Inches): 2.00 Weight (Pounds): 58 Objective Jaundiced NCAT supple CTA RR abd soft ND trace edema Assessment/Plan Status: progressing Assessment/Plan: Assessment - EtOH +/- viral hepatitis cirrhosis - last EtOH 2 mo ago - severe anemia, but currently OB (-) - coagulopathy - severe anemia - mild azotemia Recommendations f/u with hepatology push po low salt may benefit from OLT Hans Dubose MD Apr 15, 2020 22:09
--- NOTE | 2020-04-19 09:18 | Discharge Summary ---
Discharge Summary Discharge Summary _ DATE OF ADMISSION: 04/12/2020 DATE OF DISCHARGE: 04/15/2020 Patient left AGAINST MEDICAL ADVICE REASON FOR ADMISSION: 54 years old female with past medical history of liver cirrhosis, was brought by paramedics from home with altered mental status. Per patient's son she was confused. Patient by herself was unable to provide any history. No reported alcohol or drug use. No reported falls. Last alcohol drink 2 months ago. Upon evaluation vital signs were stable. Laboratory work-up revealed leukopenia WBC 2.8, hemoglobin 5.6, hematocrit 16.7, platelet count 39. Stable electrolytes. BUN 18, creatinine 1.5. Glucose 121. Total bilirubin 9.4, direct bilirubin 3.1, AST 56, ALT 23. Ammonia 84. INR 1.7. Urinalysis revealed no evidence of urinary tract infection. Urine toxicology screen was negative. Serum alcohol and salicylates were negative. CT of the head revealed no acute intracranial pathology. Age-related volume loss noted. COVID-19 was negative. In the emergency department patient received IV fluids , typed and crossed for blood transfusion. Son agreed to blood transfusion. Patient started on IV Protonix and admitted for further management. CONSULTANTS: ID specialist Dr. Julio Cesar Clifton GI specialist Dr. Guthrie non profit director/oncologist Dr. Reese [facility] COURSE: Patient admitted to monitored floor. Patient received transfusion of 3 units of packed red blood cells. Patient started on lactulose and rifaximin. Patient received vitamin K. Patient started on empiric antibiotic . Mental status and LFT were closely monitored. Abdominal ultrasound revealed evidence of hepatic cirrhosis with hepatic surface nodularity. Evidence of portal hypertension. Cholelithiasis. No evidence of dilated bile ducts. CT of the abdomen and pelvis revealed cholelithiasis. Distended thick-walled gallbladder , no no acute process otherwise. Hepatic cirrhosis. Anasarca. Splenomegaly. Stool for occult blood was negative. Hepatitis panel r was negative. HIV screen was negative. Elevated alpha-fetoprotein 10.2 , elevated CEA 9.5. Counts were closely monitored. Help Desk Agent followed. Pancytopenia was due to underlying liver cirrhosis . Prior to signing AMA WBC up to 3.3 ,hemoglobin 9.1, hematocrit 24.5, platelet count 24. INR remains elevated 1.6 . Renal parameters and electrolytes were closely monitored. Electrolytes corrected as needed, and nephrotoxins were avoided. Prior to leaving the hospital creatinine down to 1.3. GI specialist discussed findings and course of treatment with the patient's son . Patient was on low-sodium diet. GI specialist recommended outpatient liver team evaluation. Son was advised that the [facility] had no hepatology department. Son decided to take his mother to [facility]. The risks and consequences of signing AGAINST MEDICAL ADVICE were discussed with patient in detail. Patient verbalized understanding, nevertheless signed AMA form and left. FINAL DIAGNOSES: Hepatic encephalopathy Liver cirrhosis Metabolic encephalopathy Portal hypertension Cholelithiasis Acute hepatitis, probably ETOH related Pancytopenia due to underlying liver cirrhosis Coagulopathy with hepatic encephalopathy Acute kidney injury-resolved GERD I have been assigned to dictate discharge summary for this account. I was not involved in the patient's management. Yael Jones NP Apr 19, 2020 09:18
--- NOTE | 2020-04-19 18:07 | NUR ---
INSURANCE DC SUMMARY FAXED TO [facility] Ref# [id number] CM: Savanah Quiroz ph# [phone] fax#[phone]
== END 2020-04-15 11:13 | disposition left against medical advice (07) | DRG 441 ==
LOC: EDBD 15:54 → EMR 17:37 → 2E 17:45 → EDBEDREQ 20:04
PROC: 30233N1 Transfusion of Nonautologous Red Blood Cells into Peripheral Vein, Percutaneous Approach (ICD-10-PCS; principal; 2020-04-13)
DX: K72.90 Hepatic failure, unspecified without coma (principal); G93.41 Metabolic encephalopathy; N17.9 Acute kidney failure, unspecified; D68.4 Acquired coagulation factor deficiency; D61.818 Other pancytopenia; K76.6 Portal hypertension; K70.30 Alcoholic cirrhosis of liver without ascites; K80.20 Calculus of gallbladder without cholecystitis without obstruction; K70.10 Alcoholic hepatitis without ascites; F10.10 Alcohol abuse, uncomplicated; K21.9 Gastro-esophageal reflux disease without esophagitis
CPT/HCPCS: 36415; 36430; 70450; 74176; 76700; 80048; 80053; 80307; 81003; 82105; 82140; 82248; 82270; 82378; 82728; 83540; 83550; 85007; 85025; 85610; 85730; 86703; 86705; 86709; 86803; 86850; 86900; 86901; 86920; 87340; 96361; 96374; 99291; G0480; J7030; U0002